=== PATIENT | female | born 1945 | race Asian ===

== ENCOUNTER 2023-08-18 08:18 | Inpatient (IN) | payer OTHER ==
[~2023-08-18] VITALS: Ht 154.9 cm; Wt 60.1 kg
[2023-08-18] MEDS ORDERED: FURO40TA5 PO (08:46)
[2023-08-18] MEDS ORDERED: HYDR5TAB8 PO (08:46)
[2023-08-18] MEDS ORDERED: ASPI-1450 PO (08:46)
[2023-08-18] MEDS ORDERED: LEVO100T13 PO (08:46)
[2023-08-18] MEDS ORDERED: CARV12.530 PO (08:46)
[2023-08-18] MEDS ORDERED: GABA-1181 PO (08:46)
[2023-08-18] MEDS ORDERED: FLUT200B IH (08:46)
[2023-08-18] MEDS ORDERED: POTA-204 PO (08:50)
[2023-08-18] MEDS ORDERED: OMEP20 PO (08:50)
[2023-08-18] MEDS ORDERED: ATOR10TA69 PO (08:50)
[2023-08-18] MEDS ORDERED: CARV6.2534 PO (08:50)
[2023-08-18] MEDS ORDERED: PRED5DRO17 OD (08:50)
[2023-08-18] MEDS ORDERED: RALO60TA13 PO (08:50)
[2023-08-18] MEDS ORDERED: QUET25TA36 PO (08:50)
[2023-08-18] MEDS ORDERED: ATOR10TA PO (08:50)
[2023-08-18] MEDS ORDERED: ZONI100C87 PO (08:50)
[2023-08-18] MEDS ORDERED: ALBU18HF12 IH (08:50)
[2023-08-18] MEDS ORDERED: QUET25TA PO (08:53)
[2023-08-18 08:56] LABS: GLUCOMETER DEV NAME(LOC) ERT.5; GLUCOSE,POINT OF CARE 126 MG/DL (70-110)
[2023-08-18 09:59] LABS: BASOPHILS % (AUTO) 0.3 % (0.0-2.0); EOSINOPHILS % (AUTO) 0.4 % (1.0-6.0); HEMATOCRIT 40.1 % (36-46); HEMOGLOBIN 12.7 g/dL (12.0-16.0); LYMPHOCYTES # (AUTO) 1.3 K/uL (1.0-4.8); LYMPHOCYTES % (AUTO) 16.8 % (22.0-44.0); MEAN CORPUSCULAR HEMOGLOBIN 27.6 pg (26.0-34.0); MEAN CORPUSCULAR HGB CONC 31.7 G/dL (31.0-37.0); MEAN CORPUSCULAR VOLUME 87 fL (80-100); MONOCYTES # (AUTO) 0.6 K/uL (0.1-1.0); NEUTROPHILS # (AUTO) 5.8 K/uL (1.8-7.7); NEUTROPHILS % (AUTO) 74.5 % (40.0-70.0); PLATELET COUNT (AUTO) 197 K/uL (150-450); RED BLOOD CELL COUNT(AUTO) 4.61 MIL/uL (4.00-5.20); RED CELL DISTRIBUTION WIDTH 19.6 % (11.5-14.5); WHITE BLOOD COUNT (AUTO) 7.8 K/uL (4.5-11.0)
[2023-08-18 10:11] LABS: INR 1.7 (0.9-1.1); PROTHROMBIN TIME 17.6 SEC (9.4-11.6)
[2023-08-18 10:13] LABS: CALCIUM, TOTAL 9.3 mg/dL (8.8-10.5); CREATININE 2.13 mg/dL (0.60-1.30); POTASSIUM 5.4 mmol/L (3.5-5.1)
[2023-08-18 10:20] LABS: ALBUMIN 2.3 g/dL (3.4-5.0); AMMONIA 11 umol/L (11-32); BILIRUBIN,TOTAL 2.5 mg/dL (0.1-1.0); TOTAL PROTEIN, SERUM 6.2 g/dL (6.4-8.2)
[2023-08-18 10:30] LABS: TROPONIN I-HIGH SENSITIVITY 111 ng/L (<51)
[2023-08-18 11:08] LABS: COVID AG,FIA SOURCE NASAL SWAB
[2023-08-18 11:17] LABS: APPEARANCE,URINE CLEAR (CLEAR); BILIRUBIN,URINE NEGATIVE (NEGATIVE); COLOR,URINE YELLOW (YELLOW); GLUCOSE, URINE (UA) NEGATIVE (NEGATIVE); KETONES,URINE TRACE mg/dL (NEGATIVE); LEUKOCYTE ESTERASE ,URINE MODERATE (NEGATIVE); NITRATE,URINE NEGATIVE (NEGATIVE); OCCULT BLOOD,URINE NEGATIVE (NEGATIVE); PROTEIN,URINE TRACE mg/dL (NEGATIVE); SPECIFIC GRAVITIY, URINE 1.022 (1.003-1.030); UROBILINOGEN,URINE <=1.0 mg/dL (<=1.0)
[2023-08-18 11:30] LABS: RBC,URINE None Seen /HPF (0-2)
[2023-08-18 11:31] LABS: BACTERIA,URINE None Seen /HPF (None Seen); SQUAMOUS EPITHELIAL CELL,UR Few /LPF (None Seen)
[2023-08-18 11:41] LABS: SARS-COV2 (COVID) ANTIGEN,FIA Negative (Negative)
[2023-08-18 11:42] LABS: ALCOHOL, URINE DRUG SCREEN NEGATIVE (NEGATIVE); AMPHET/METH SCREEN,URINE NEGATIVE (NEGATIVE); BARBITURATE SCREEN, URINE NEGATIVE (NEGATIVE); BENZODIAZEPINES SCREEN,URINE NEGATIVE (NEGATIVE); CANNABINOID SCREEN,URINE NEGATIVE (NEGATIVE); COCAINE SCREEN,URINE NEGATIVE (NEGATIVE); METHADONE SCREEN, URINE NEGATIVE (NEGATIVE); OPIATE SCREEN,URINE NEGATIVE (NEGATIVE); PHENCYCLIDINE SCREEN,URINE NEGATIVE (NEGATIVE)
[2023-08-18] MEDS ORDERED: HYDR-3887 PO ×2 (12:39)
[2023-08-18] MEDS ORDERED: CEFU500T41 PO (12:43)
[2023-08-18] MEDS ORDERED: CefTRIAXone 1 GM/DEXTROSE 50 ML IV ONE (12:45)
[2023-08-18] MEDS ORDERED: PRED5DRO17 OS (12:46)
[2023-08-18 13:10] VITALS: BP 97/58; PULSE 93; RESP 18; TEMP 97.7
[2023-08-18 13:29] VITALS: BP 100/64; PULSE 97; RESP 19; TEMP 97.7
[2023-08-18 14:06] LABS: CREATININE 2.21 mg/dL (0.60-1.30); POTASSIUM 5.3 mmol/L (3.5-5.1)
[2023-08-18] MEDS ORDERED: IPRATROPIUM BROMIDE 0.5 MG/2.5 ML NEB SOLUTION NEB PRN (19:00)
[2023-08-18] MEDS ORDERED: ZOLPIDEM TARTRATE 5 MG TABLET PO PRN (19:00)
[2023-08-18] MEDS ORDERED: ONDANSETRON HCL 4 MG/2 ML VIAL IVP PRN (19:00)
[2023-08-18] MEDS ORDERED: ALBUTEROL SULFATE 2.5 MG/0.5 ML NEB SOLUTION NEB PRN (19:00)
[2023-08-18] MEDS ORDERED: MORPHINE SULFATE 2 MG/ML SYRINGE IVP PRN (19:00)
[2023-08-18] MEDS ORDERED: ACETAMINOPHEN 325 MG TABLET PO PRN (19:00)
[2023-08-18] MEDS ORDERED: MAGNESIUM HYDROXIDE SUSPENSION 30 ML UDCUP PO PRN (19:00)
[2023-08-18] MEDS ORDERED: HYDROCODONE/ACETAMINOPHEN 5-325 MG TABLET PO PRN (19:00)
[2023-08-18] MEDS ORDERED: BISACODYL 10 MG RECTAL RECTAL SUPPOSITORY PR PRN (19:00)
[2023-08-18 20:00] VITALS: BP 102/72; PULSE 102; RESP 18; TEMP 97.7
[2023-08-18] MEDS: FUROSEMIDE 40 MG/4 ML VIAL IVP SCH (21:00)
[2023-08-18] MEDS: CARVEDILOL 12.5 MG TABLET PO SCH (21:13)
[2023-08-18] MEDS: CEFUROXIME AXETIL 250 MG TABLET PO SCH (21:13)
[2023-08-18] MEDS: DOCUSATE SODIUM 100 MG CAPSULE PO SCH (21:13)
[2023-08-18] MEDS: PrednisoLONE ACETATE 1% 5 ML OPHTHALMIC SUSPENSION OS SCH (21:13)
[2023-08-18] MEDS: HYDROCORTISONE 10 MG TABLET PO SCH (21:15)
[2023-08-18] MEDS: GABAPENTIN 300 MG CAPSULE PO SCH (21:15)
[2023-08-19 00:18] VITALS: BP 114/74; PULSE 120; RESP 22; TEMP 98.1
[2023-08-19] MEDS: HEPARIN SODIUM,PORCINE 5,000 UNITS/ML VIAL SQ SCH ×3 (00:20→16:46)
[2023-08-19 04:00] VITALS: BP 99/57; PULSE 98; RESP 20; TEMP 97.6
[2023-08-19] MEDS: LEVOTHYROXINE SODIUM 100 MCG TABLET PO SCH (05:59)
[2023-08-19 07:44] VITALS: BP 106/54; PULSE 86; RESP 20; TEMP 97.6
[2023-08-19] MEDS: CEFUROXIME AXETIL 250 MG TABLET PO SCH ×2 (08:59→20:30)
[2023-08-19] MEDS: HYDROCORTISONE 10 MG TABLET PO SCH ×2 (08:59→20:31)
[2023-08-19] MEDS: ATORVASTATIN CALCIUM 10 MG TABLET PO SCH (08:59)
[2023-08-19] MEDS: ASPIRIN 81 MG CHEWABLE TABLET PO SCH (08:59)
[2023-08-19] MEDS: CARVEDILOL 12.5 MG TABLET PO SCH ×2 (08:59→20:30)
[2023-08-19] MEDS ORDERED: OMEPRAZOLE 20 MG CAPSULE PO SCH (09:00)
[2023-08-19] MEDS: FUROSEMIDE 40 MG/4 ML VIAL IVP SCH ×2 (09:00→21:00)
[2023-08-19] MEDS: PANTOPRAZOLE SODIUM 40 MG/VIAL IVP SCH (09:00)
[2023-08-19] MEDS: DOCUSATE SODIUM 100 MG CAPSULE PO SCH ×2 (09:00→21:00)
[2023-08-19] MEDS: FLUTICASONE FUROATE 200 MCG/INH INHALER [14] IH SCH (09:00)
[2023-08-19] MEDS: PrednisoLONE ACETATE 1% 5 ML OPHTHALMIC SUSPENSION OD SCH (09:01)
[2023-08-19] MEDS: PrednisoLONE ACETATE 1% 5 ML OPHTHALMIC SUSPENSION OS SCH ×2 (09:01→20:29)
[2023-08-19 12:26] VITALS: BP 101/56; PULSE 75; RESP 19; TEMP 97.7
[2023-08-19 16:59] VITALS: BP 93/64; PULSE 90; RESP 18; TEMP 97.6
[2023-08-19 20:14] VITALS: BP 97/68; PULSE 110; RESP 18; TEMP 97.9
[2023-08-19] MEDS: GABAPENTIN 300 MG CAPSULE PO SCH (20:31)
[2023-08-20 00:13] VITALS: BP 95/56; PULSE 86; RESP 18; TEMP 97.7
[2023-08-20] MEDS: HEPARIN SODIUM,PORCINE 5,000 UNITS/ML VIAL SQ SCH ×4 (00:19→23:31)
[2023-08-20 03:57] VITALS: BP 100/58; PULSE 93; RESP 18; TEMP 97.6
[2023-08-20 06:57] LABS: BASOPHILS % (AUTO) 0.2 % (0.0-2.0); EOSINOPHILS % (AUTO) 0.5 % (1.0-6.0); HEMATOCRIT 39.7 % (36-46); HEMOGLOBIN 12.6 g/dL (12.0-16.0); LYMPHOCYTES # (AUTO) 1.1 K/uL (1.0-4.8); MEAN CORPUSCULAR HEMOGLOBIN 27.9 pg (26.0-34.0); MEAN CORPUSCULAR HGB CONC 31.9 G/dL (31.0-37.0); MEAN CORPUSCULAR VOLUME 87 fL (80-100); MONOCYTES # (AUTO) 0.5 K/uL (0.1-1.0); MONOCYTES % (AUTO) 9.1 % (2.0-9.0); NEUTROPHILS # (AUTO) 4.3 K/uL (1.8-7.7); NEUTROPHILS % (AUTO) 71.2 % (40.0-70.0); PLATELET COUNT (AUTO) 172 K/uL (150-450); RED BLOOD CELL COUNT(AUTO) 4.54 MIL/uL (4.00-5.20); RED CELL DISTRIBUTION WIDTH 20.2 % (11.5-14.5)
[2023-08-20] MEDS: LEVOTHYROXINE SODIUM 100 MCG TABLET PO SCH (07:02)
[2023-08-20 07:35] LABS: ALBUMIN 2.4 g/dL (3.4-5.0); BILIRUBIN,TOTAL 1.9 mg/dL (0.1-1.0); CALCIUM, TOTAL 8.8 mg/dL (8.8-10.5); CREATININE 1.57 mg/dL (0.60-1.30); MAGNESIUM 2.9 mg/dL (1.80-2.40); PHOSPHORUS 3.4 mg/dL (2.5-4.9); POTASSIUM 5.7 mmol/L (3.5-5.1); THYROID STIMULATING HORMONE 0.97 uIU/mL (0.36-3.74); TOTAL PROTEIN, SERUM 6.3 g/dL (6.4-8.2)
[2023-08-20 08:12] VITALS: BP 105/67; PULSE 98; RESP 18; TEMP 98
[2023-08-20] MEDS: FUROSEMIDE 40 MG/4 ML VIAL IVP SCH ×2 (08:18→21:29)
[2023-08-20] MEDS: CARVEDILOL 12.5 MG TABLET PO SCH ×2 (08:18→21:31)
[2023-08-20] MEDS: CEFUROXIME AXETIL 250 MG TABLET PO SCH ×2 (08:18→21:30)
[2023-08-20] MEDS: ASPIRIN 81 MG CHEWABLE TABLET PO SCH (08:18)
[2023-08-20] MEDS: ATORVASTATIN CALCIUM 10 MG TABLET PO SCH (08:19)
[2023-08-20] MEDS: DOCUSATE SODIUM 100 MG CAPSULE PO SCH ×2 (08:20→21:00)
[2023-08-20] MEDS: PANTOPRAZOLE SODIUM 40 MG/VIAL IVP SCH (08:20)
[2023-08-20] MEDS: PrednisoLONE ACETATE 1% 5 ML OPHTHALMIC SUSPENSION OD SCH (08:21)
[2023-08-20] MEDS: HYDROCORTISONE 10 MG TABLET PO SCH ×2 (08:21→21:31)
[2023-08-20] MEDS: FLUTICASONE FUROATE 200 MCG/INH INHALER [14] IH SCH (08:22)
[2023-08-20] MEDS: PrednisoLONE ACETATE 1% 5 ML OPHTHALMIC SUSPENSION OS SCH ×2 (09:00→21:30)
[2023-08-20 10:58] VITALS: BP 112/59; PULSE 89; RESP 18; TEMP 98
[2023-08-20] MEDS: SODIUM ZIRCONIUM CYCLOSILICATE 5 GM POWDER PACKET PO SCH (12:22)
[2023-08-20 16:56] VITALS: BP 116/62; PULSE 92; RESP 18; TEMP 98
[2023-08-20 19:26] VITALS: BP 104/68; PULSE 84; RESP 18; TEMP 97.6
[2023-08-20] MEDS: GABAPENTIN 300 MG CAPSULE PO SCH (21:32)
[2023-08-21] VITALS (7 sets, daily range): BP systolic 97–106; BP diastolic 50–70; PULSE 73–98; RESP 16–18; TEMP 97.5–98.1
[2023-08-21] MEDS: LEVOTHYROXINE SODIUM 100 MCG TABLET PO SCH (06:23)
[2023-08-21] MEDS: HEPARIN SODIUM,PORCINE 5,000 UNITS/ML VIAL SQ SCH ×3 (08:00→23:48)
[2023-08-21] MEDS: PANTOPRAZOLE SODIUM 40 MG/VIAL IVP SCH (09:00)
[2023-08-21] MEDS: FLUTICASONE FUROATE 200 MCG/INH INHALER [14] IH SCH (09:39)
[2023-08-21] MEDS: PrednisoLONE ACETATE 1% 5 ML OPHTHALMIC SUSPENSION OS SCH ×2 (09:39→21:18)
[2023-08-21] MEDS: PrednisoLONE ACETATE 1% 5 ML OPHTHALMIC SUSPENSION OD SCH (09:39)
[2023-08-21] MEDS: ASPIRIN 81 MG CHEWABLE TABLET PO SCH (09:40)
[2023-08-21] MEDS: DOCUSATE SODIUM 100 MG CAPSULE PO SCH ×2 (09:40→21:17)
[2023-08-21] MEDS: ATORVASTATIN CALCIUM 10 MG TABLET PO SCH (09:40)
[2023-08-21] MEDS: CEFUROXIME AXETIL 250 MG TABLET PO SCH ×2 (09:40→23:44)
[2023-08-21] MEDS: SODIUM ZIRCONIUM CYCLOSILICATE 5 GM POWDER PACKET PO SCH (09:46)
[2023-08-21] MEDS: HYDROCORTISONE 10 MG TABLET PO SCH ×2 (09:46→21:17)
[2023-08-21] MEDS: CARVEDILOL 12.5 MG TABLET PO SCH ×2 (09:46→21:17)
[2023-08-21] MEDS ORDERED: FUROSEMIDE 40 MG/4 ML VIAL IVP SCH (11:15)
[2023-08-21] MEDS: FUROSEMIDE 40 MG TABLET PO SCH ×2 (12:51→21:17)
[2023-08-21 13:22] LABS: CALCIUM, TOTAL 8.4 mg/dL (8.8-10.5); CREATININE 1.53 mg/dL (0.60-1.30); POTASSIUM 4.3 mmol/L (3.5-5.1)
[2023-08-21] MEDS ORDERED: TOLVAPTAN 15 MG TABLET PO ONE (16:00)
[2023-08-21] MEDS: GABAPENTIN 300 MG CAPSULE PO SCH (21:17)
[2023-08-22 01:03] VITALS: BP 112/63; PULSE 90; RESP 18; TEMP 97.5
[2023-08-22] MEDS: LEVOTHYROXINE SODIUM 100 MCG TABLET PO SCH (06:02)
[2023-08-22 06:22] VITALS: BP 99/70; PULSE 73; RESP 17; TEMP 98.2
[2023-08-22 07:40] LABS: CALCIUM, TOTAL 8.8 mg/dL (8.8-10.5); CREATININE 1.32 mg/dL (0.60-1.30); POTASSIUM 4.6 mmol/L (3.5-5.1)
[2023-08-22 08:20] VITALS: BP 104/66; PULSE 70; RESP 18; TEMP 98.6
[2023-08-22] MEDS: ATORVASTATIN CALCIUM 10 MG TABLET PO SCH (08:31)
[2023-08-22] MEDS: HEPARIN SODIUM,PORCINE 5,000 UNITS/ML VIAL SQ SCH (08:31)
[2023-08-22] MEDS: ASPIRIN 81 MG CHEWABLE TABLET PO SCH (08:32)
[2023-08-22] MEDS: HYDROCORTISONE 10 MG TABLET PO SCH (08:33)
[2023-08-22] MEDS: CEFUROXIME AXETIL 250 MG TABLET PO SCH (08:34)
[2023-08-22] MEDS: SODIUM ZIRCONIUM CYCLOSILICATE 5 GM POWDER PACKET PO SCH (08:35)
[2023-08-22] MEDS: FUROSEMIDE 40 MG TABLET PO SCH (08:35)
[2023-08-22] MEDS: DOCUSATE SODIUM 100 MG CAPSULE PO SCH (08:35)
[2023-08-22] MEDS: CARVEDILOL 12.5 MG TABLET PO SCH (08:35)
[2023-08-22] MEDS: FLUTICASONE FUROATE 200 MCG/INH INHALER [14] IH SCH (08:35)
[2023-08-22] MEDS: PrednisoLONE ACETATE 1% 5 ML OPHTHALMIC SUSPENSION OD SCH (08:36)
[2023-08-22] MEDS: PrednisoLONE ACETATE 1% 5 ML OPHTHALMIC SUSPENSION OS SCH (08:45)
[2023-08-22] MEDS: PANTOPRAZOLE SODIUM 40 MG/VIAL IVP SCH (09:10)
[2023-08-22 12:30] VITALS: BP 123/99; PULSE 103; RESP 18; TEMP 98.3
[2023-08-22 15:45] VITALS: BP 100/70; PULSE 90; RESP 18; TEMP 98
== END 2023-08-22 17:38 | DRG 469 ==
LOC: EMS 08:19 → 5S 11:15 → 6S 12:50 → 5S 14:03
PROVIDERS: ADMIT Hospitalist; ATTEND Hospitalist
DX: N17.9 Acute kidney failure, unspecified (principal); G93.40 Encephalopathy, unspecified; I27.20 Pulmonary hypertension, unspecified; E27.1 Primary adrenocortical insufficiency; E87.1 Hypo-osmolality and hyponatremia; E88.09 Other disorders of plasma-protein metabolism, not elsewhere classified; I49.5 Sick sinus syndrome; E86.0 Dehydration; I48.91 Unspecified atrial fibrillation; I13.0 Hypertensive heart and chronic kidney disease with heart failure and stage 1 through stage 4 chronic kidney disease, or unspecified chronic kidney disease; I50.32 Chronic diastolic (congestive) heart failure; E78.00 Pure hypercholesterolemia, unspecified; N18.9 Chronic kidney disease, unspecified; E03.9 Hypothyroidism, unspecified; K21.9 Gastro-esophageal reflux disease without esophagitis; Z20.822 Contact with and (suspected) exposure to COVID-19; K74.60 Unspecified cirrhosis of liver; E87.5 Hyperkalemia; K64.9 Unspecified hemorrhoids; G40.909 Epilepsy, unspecified, not intractable, without status epilepticus; I08.1 Rheumatic disorders of both mitral and tricuspid valves; J45.909 Unspecified asthma, uncomplicated; K76.9 Liver disease, unspecified; Z79.82 Long term (current) use of aspirin; Z79.899 Other long term (current) drug therapy; Z88.8 Allergy status to other drugs, medicaments and biological substances; Z91.013 Allergy to seafood
CPT/HCPCS: 36245; 36569; 51702; 70450; 71045; 76937; 80048; 80053; 80307; 81001; 82140; 82550; 82962; 83605; 83735; 83930; 84100; 84443; 84484; 85025; 85610; 85730; 87040; 87081; 87086; 87186; 93005; 93306; 97110; 97163; 97167; 97530; 97535; 99285; C9113; G0378; J0696; J1644; J1940; Q9967; 36415-L1; 36415-TC; J7613

== ENCOUNTER 2023-09-03 15:55 | Emergency (ER) | payer OTHER ==
[~2023-09-03] VITALS: Ht 165.1 cm; Wt 69.2 kg
[~2023-09-03 15:55] MED LIST: ALBU18HF12 IH; ASPI-1450 PO; ATOR10TA69 PO; CARV12.530 PO; CEFU500T41 PO; FLUT200B IH; FURO40TA5 PO; GABA-1181 PO; HYDR-3887 PO; LEVO100T13 PO; OMEP20 PO; POTA-204 PO; PRED5DRO17 OD; PRED5DRO17 OS; QUET25TA PO; QUET25TA36 PO; RALO60TA13 PO; ZONI100C87 PO
[2023-09-03] MEDS ORDERED: TRANEXAMIC ACID 1,000 MG/10 ML VIAL TP ONE (16:00)
[2023-09-03] MEDS ORDERED: TRANEXAMIC ACID 1,000 MG in DEXTROSE 5%-WATER 50 ML IV ONE (16:00)
[2023-09-03] MEDS ORDERED: 0.9% SODIUM CHLORIDE 10 ML SYRINGE IVP PRN (16:15)
[2023-09-03 16:23] LABS: HEMATOCRIT 34.9 % (36-46); HEMOGLOBIN 10.2 g/dL (12.0-16.0); MEAN CORPUSCULAR HEMOGLOBIN 27.1 pg (26.0-34.0); MEAN CORPUSCULAR HGB CONC 29.4 G/dL (31.0-37.0); MEAN CORPUSCULAR VOLUME 92 fL (80-100); PLATELET COUNT (AUTO) 214 K/uL (150-450); RED BLOOD CELL COUNT(AUTO) 3.78 MIL/uL (4.00-5.20); RED CELL DISTRIBUTION WIDTH 21.5 % (11.5-14.5)
[2023-09-03] MEDS ORDERED: EPINEPHrine 2 MG in DEXTROSE 5%-WATER 248 ML IV PRN (16:30)
[2023-09-03 16:32] LABS: INR 2.2 (0.9-1.1); PROTHROMBIN TIME 21.5 SEC (9.4-11.6)
[2023-09-03 16:38] LABS: TROPONIN I-HIGH SENSITIVITY 38 ng/L (<51)
[2023-09-03] MEDS ORDERED: NOREPINEPHRINE 8 MG/0.9 % NACL 250 ML IV PRN (16:45)
[2023-09-03 16:47] LABS: ALANINE AMINOTRANSFERASE 150 U/L (12-78); ALBUMIN 1.5 g/dL (3.4-5.0); ALKALINE PHOSPHATASE 377 U/L (46-116); ANION GAP 15 mmol/L (8-16); ASPARTATE AMINOTRANSFERASE 747 U/L (15-37); B-TYPE NATRIURETIC PEPTIDE 720 pg/mL (0-100); BILIRUBIN,TOTAL 1.9 mg/dL (0.1-1.0); CARBON DIOXIDE 20 mmol/L (22-29); CHLORIDE 103 mmol/L (98-107); GLOMERULAR FILTR. RATE CALC 21 mL/min (>60); GLUCOSE,RANDOM 162 mg/dL (70-110); SODIUM SERUM 138 mmol/L (136-145); TOTAL PROTEIN, SERUM 4.4 g/dL (6.4-8.2); UREA NITROGEN, BLOOD 75 mg/dL (7-18)
[2023-09-03 16:49] LABS: POTASSIUM 6.1 mmol/L (3.5-5.1)
[2023-09-03 17:00] VITALS: RESP 20
[2023-09-03 17:05] LABS: APPEARANCE,URINE HAZY (CLEAR); BILIRUBIN,URINE NEGATIVE (NEGATIVE); COLOR,URINE YELLOW (YELLOW); GLUCOSE, URINE (UA) NEGATIVE (NEGATIVE); KETONES,URINE NEGATIVE (NEGATIVE); LEUKOCYTE ESTERASE ,URINE LARGE (NEGATIVE); NITRATE,URINE NEGATIVE (NEGATIVE); OCCULT BLOOD,URINE SMALL (NEGATIVE); PROTEIN,URINE NEGATIVE (NEGATIVE); SPECIFIC GRAVITIY, URINE 1.014 (1.003-1.030); UROBILINOGEN,URINE <=1.0 mg/dL (<=1.0)
[2023-09-03] MEDS ORDERED: VASOPRESSIN 40 UNITS in DEXTROSE 5%-WATER 98 ML IV PRN (17:15)
[2023-09-03] MEDS ORDERED: PHENYLEPHRINE 200 MG/D5%-WATER 250 ML IV PRN (17:15)
[2023-09-03] MEDS ORDERED: DOPamine 400MG/D5W[STANDARD] 250 ML IV PRN (17:15)
[2023-09-03 17:20] VITALS: BP 86/59; PULSE 91
[2023-09-03] MEDS ORDERED: ROCURONIUM BROMIDE 10 MG/ML 5 ML VIAL IVP ONE (17:30)
[2023-09-03 18:17] LABS: BACTERIA,URINE Moderate /HPF (None Seen); RBC,URINE None Seen /HPF (0-2); YEAST,URINE Few /HPF (None Seen)
[2023-09-03 19:58] LABS: BAND NEUTROPHILS % (MANUAL) 0 % (0-5)
[2023-09-03 20:10] LABS: CORRECTED WHITE BLOOD COUNT 11.2 K/uL (4.5-11.0); LYMPHOCYTES % (MANUAL) 36 % (22-44); MONOCYTES % (MANUAL) 3 % (2-9); SEGMENTED NEUTROPHILS % 61 % (40-70); TOTAL CELLS COUNTED 100; WHITE BLOOD COUNT (AUTO) 11.2 K/uL (4.5-11.0)
== END 2023-09-03 20:00 ==
LOC: EMS 15:56
DX: I46.9 Cardiac arrest, cause unspecified (principal); J45.909 Unspecified asthma, uncomplicated; F03.90 Unspecified dementia, unspecified severity, without behavioral disturbance, psychotic disturbance, mood disturbance, and anxiety; E78.00 Pure hypercholesterolemia, unspecified; E03.9 Hypothyroidism, unspecified; Z91.013 Allergy to seafood; Z88.8 Allergy status to other drugs, medicaments and biological substances
CPT/HCPCS: 80053; 81001; 83605; 83880; 84484; 85025; 85610; 86850; 86900; 86901; 36415; 87086; 87186; 92950; 71045; 93005; 96365; 96366; 96368; 96375; 99291; 84145; J0171; J3490 ×2; J7060 ×3; J2370; 94002